=== PATIENT | male | born 1950 | race Caucasian/White ===

== ENCOUNTER 2016-10-16 02:46 | Inpatient (IN) | payer OTHER, MEDICARE ==
[~2016-10-16] VITALS: Ht 182.9 cm; Wt 115.7 kg
[~2016-10-16 02:46] MED LIST: ADVAIR DISKUS 21 DSK INH; AMLODIPINE BESY10 M1 PO; AUGMENTIN 875875 MG PO; BYSTOLIC10 MG PO; BYSTOLIC20 M1 PO; CHLORDIAZEPOXID25 M3 PO; IRON; PROAIR HFA0.09 MG/Ac INH; PROBIOTIC & ACI1 CAP PO
--- NOTE | 2016-10-16 12:06 | Operative Report ---
Operative/Inv Procedure Report Surgery Date: 10/16/16 Name of Procedure: Left total knee arthroplasty Pre-Operative Diagnosis: Primary osteoarthritis left knee Post-Operative Diagnosis: Same Estimated Blood Loss: less than 50ml Surgeon/Freedom Of Information Officer: LORY LEE,JOSE Christian Physician life science research assistant Robert Gu Anesthesia: block (spinal) IV Fluids: See anesthesia record Implants: Striker triathlon posterior stabilize knee. Size 5 femur, size 6 tibia, 13 mm polyethylene insert, 29 asymmetric patella Drains: None Specimens: Bone to pathology Tourniquet: 54 minutes Complications: None Condition: Stable Operative Indication: Patient is a 66-year-old male with severe osteoarthritis of the left knee. He failed conservative treatment and wished to proceed with total knee arthroplasty. Risk and benefits of the procedure discussed the patient detail in the office and he wished to proceed. Skilled set of hands was necessary provided by physician life science research assistant Robert Gu weighted with retraction positioning and component assembly throughout the case. Operative/Procedure Note Note: Once informed consent was obtained the correct limb was identified the patient brought to operating room placed on table supine position after administration of spinal anesthesia. A thigh tourniquet was placed on left lower extremity and a Parnell catheter was placed. Left lower from his prepped and draped usual sterile fashion. To begin the procedure standard midline incision was made and sharp dissection carried down to skin and subcutaneous tissue and fat. A medial parapatellar arthrotomy was made and the patella was everted. The fat pads removed the patellar tendon. Ossified from within the patella and patellar thickness was measured to be 26 mm. Plan resection of 10 mm was performed on the patella using the jig. The patella was then sized to be an asymmetric 29 patella. The jig was loaded and the lug holes were drilled. The patella was then retracted laterally and knee was placed into flexion. Step drill was used to enter the intramedullary canal of the femur. The distal femoral cutting guide was placed in the intramedullary canal with a plan resection of 10 mm of bone and 6 valgus cut. This was done without complication. The femur was then sized with a femoral sizing guide. A size 5 femur was chosen. A size 5 4-in-1 cutting block was placed in the distal femur and the anterior, posterior, chamfer cuts were made. Bone was passed off as specimen. Next the box cut guide was placed for the posterior stabilized knee. The box cut was made with a chisel an oscillating saw. At this point we then used curved osteotome to remove any posterior osteophytes off the femoral condyles. The menisci were resected sharply with a #10 blade. Any cruciate ligaments were removed and the tibia was translated anteriorly with a pickle fork retractor. Intramedullary canal of the tibia was entered with a step drill and the tibial cutting guide was placed. A plan resection of 4 mm off the medial side of the knee was done without complication and bone was passed off as specimen. The tibia was then sized to be a size 6 tibia. The trial reduction was done with a 6 tibial tray a 5 femoral component and an 11 mm polyethylene insert. With the 11 mm meter polyethylene insert the knee was loose both varus and valgus stress guerra. We might up to a 13 mm polyethylene insert trial. This was placed and the knee was taken through a range of motion. The patella tracked very nicely and the component for the tibia was marked for rotation. The components removed and the tibial component tray was pinned in place and the keel cut was made. Once this was done ONCE removed and the knee was pulse lavaged. The cement was mixed on the back table and while the cement was being prepared X Alba was used to inject for local anesthesia. The components were then cemented in place with the tibia followed by the femur followed by the patellar button. All excess cement was removed with curettes. A 13 mm trial insert was placed and knee was placed in extension while the cement hardened. Knee was taken through a range of motion and found to be stable at 0 and 70 to varus valgus stress with 120 of flexion and full extension. The trial insert was removed and a 13 mm polyethylene insert was opened and locked into the tibial tray. Final pulse lavage was performed and the tourniquet was released. Any bleeding was stopped with electro cautery. The arthrotomy was then closed #1 Vicryl interrupted sutures. The subcutaneous tissues were closed with #1 Vicryl and 2-0 Vicryl interrupted sutures and the skin was closed nicolasa. A sterile dressing was applied and the patient was awakened taken recovery in stable condition.
--- NOTE | 2016-10-16 14:27 | PN- Orthopedic ---
Subjective Subjective: Post-op Check Pt. Doing well and pain well controlled. Currently denies any CP, SOB, N, V, numbness or tingling. Tolerating clears. Coleman in place and draining clear yellow urine. Has yet to ambulate with PT. Objective Vital Signs and I&Os HR: 60 RR: 11 O2: 92% on RA BP: 150/79 Physical Exam: Gen: NAD, sitting up in bed CV: Borderline allie Pulm: CTA Abd: Obese, soft, +BS throughout Ext: Left LE: JINNY and On-Q in place. No evidence of active bleeding, thigh compartments soft. wiggling toes. 2+ DP pulse. no calf tenderness b/l. Assessment/Plan Assessment/Plan 66 M with a PMH of COPD and HTN is POD#0 s/p LEFT total knee Plan: - Continue home meds including BP (B-jaye) - PT -> WBAT - d/c coleman in am - Vanco x1 post-op - Labs in AM - Eliquis 2.5 mg BID - Bowel regimen - Dressing change POD# 2 Core Measures/Miscellaneous Venous Thromboembolism VTE Risk Factors: Age > 40 VTE Contraindications: No Contraindications VTE Diagnosis: No Beta Jaye Is Beta Jaye a Home Med? Yes Antibiotics Is Patient on Antibiotics? Yes
--- NOTE | 2016-10-16 14:32 | Patient Discharge Instructions ---
Discharge Instructions General Discharge Information You were seen/treated for: Left knee osteoarthrits You had these procedures: Left total knee replacement Watch for these problems: Temps >101.5, redness, drainage, foul odor, new onset of numbness or tingling, inability to walk. Call Surgeon to remove: Herrera No bath, but you may shower: Yes Other wound care: Keep clean and dry. Daily dressing changes. Special Instructions: Eliquis 2.5mg BID Total knee precautions Please have basic electrolyte panel blood drawn with prescription provided. f/u with PCP no later than 10/25/16 Diet Continue normal diet: Yes Activity Full Activity/No Limits: No Activity Self Limited: Yes Acute Coronary Syndrome Inclusion Criteria At DC or during hospital stay patient has or had the following: ACS DIAGNOSIS No Discharge Core Measures Meds if any: Prescribed or Continued at Discharge Meds if any: NOT Prescribed or Continued at Discharge Congestive Heart Failure Inclusion Criteria At DC or during hospital stay patient has or had the following: CHF DIAGNOSIS No Discharge Core Measures Meds if any: Prescribed or Continued at Discharge Meds if any: NOT Prescribed or Continued at Discharge Cerebrovascular accident Inclusion Criteria At DC or during hospital stay patient has or had the following: CVA/TIA Diagnosis No Discharge Core Measures Meds if any: Prescribed or Continued at Discharge Meds if any: NOT Prescribed or Continued at Discharge Venous thromboembolism Inclusion Criteria VTE Diagnosis No VTE Type NONE VTE Confirmed by (Test) NONE Discharge Core Measures - Per Current guidelines, there needs to be overlap - treatment for the first 5 days of Warfarin therapy. - If discharged on Warfarin prior to 5 days of - overlap therapy, the patient will need to be - assessed for post discharge needs including - *Post discharge parental anticoagulation - *Warfarin and/or parental anticoagulation education - *Follow up date to check INR post discharge At least 5 days overlap therapy as Inpatient No Meds if any: Prescribed or Continued at Discharge Note: Overlap Therapy is Warfarin and Anticoagulant Meds if any: NOT Prescribed or Continued at Discharge
--- NOTE | 2016-10-16 14:34 | Admission Core Measures ---
Admission Meds I reviewed the following Meds: Current Medications Sig/Keshawn Start time Last Medication Dose Stop Time Status Admin Vancomycin HCl 1,000 MG ONCE 10/16 0000 NR Sodium Chloride 250 ML 10/16 5229 (Normal Saline 0.9%) Acute Coronary Syndrome Inclusion Criteria ACS Diagnosis No Inpatient Core Measures LDL Reminder: If No, please order W/I first 24hr of stay Congestive Heart Failure Inclusion Criteria CHF Diagnosis No Cerebrovascular accident Inclusion Criteria CVA/TIA Diagnosis No Inpatient Core Measures Bedside Swallow Eval Reminder: If BSE failed, place ST order Antithrombotic Reminder: Order Antithrombotic Medication by end of day 2 Antithrombotic Reminder: Document Reason Antithrombotic Not ordered by end of day 2 AFIB/Flutter Reminder: If Present, add to problem list AFIB/Flutter Reminder: Order Anticoag Medication for pts with AFIB/Flutter Atherosclerosis Reminder: If Present, add to problem list LDL Reminder: If No, please order W/I first 24hr of stay PT Order Reminder: If No, please order Venous thromboembolism Inpatient Core Measures VTE Risk Factors: Age > 40, [facility]esity [facility] prophylaxis d/t No contraindications No VTE Pharm Prophylaxis d/t No contraindications Inclusion Criteria - Per Current guidelines, there needs to be overlap - treatment for the first 5 days of Warfarin therapy. - Parenteral Anticoagulation (IV or SC) needs to be - given along with Warfarin therapy. VTE Diagnosis No VTE Type NONE VTE Confirmed by (Test) NONE Problem List As ranked by this Provider includes Assessment & Plan 1. S/P total knee arthroplasty HOME MEDS Home Med List Amlodipine Besylate 10 MG TABLET 1 TAB PO DAILY BP (Reported) Chlordiazepoxide HCl 25 MG CAPSULE 2 CAP PO QPM UNKNOWN (Reported) Nebivolol HCl (Bystolic) 20 MG TABLET 1 TAB PO DAILY HEART (Reported)
[2016-10-16 15:34] VITALS: BP 134/82
--- NOTE | 2016-10-16 15:35 | NUR ---
PT CAME UP FROM PACU. PATIENT ALERT AND ORIENTED X3. VSS AT THIS TIME. ONQ PUMP VISIBLE AT THE ADDUCTOR CANAL GOING TO 8ML/HR. SITE INTACT. SURGICAL SITE TO LEFT HIP INTACT. +CMS. , DARIELAR AT THE BEDSIDE. PATIENT ORIENTED TO STAFF, CALL AMEZCUA. PT EDUCATED ABOUT BAUGH CATHETER AND ITS PURPOSE. PT ABLE TO VERBALIZE EDUCATION BACK TO THIS RN. PATIENT CURRENTLY DENIES PAIN AND VERBALIZES COMFORT LEVEL. PROFESSIONAL PROGRAMMER ANALYST INFO AND BADGE GIVE TO . PATIENT NOR FAMILY MEMEBER OFFER NO COMPLAINTS AT THIS TIME. REPORT GIVEN TO UNCOMING RNROGELIO
[2016-10-16 16:56] VITALS: BP 118/70
[2016-10-16 19:30] VITALS: BP 122/80
--- NOTE | 2016-10-16 20:46 | NUR ---
PT ON Q PUMP SET TO 8ML/HR. PAPER CHART SHOWS ON Q TO BE SET AT 12 ML/HR. CALLED ANESTHESIA FOR CLARIFICATION. WILL INCREASE ON Q TO 12 ML/HR PER ANESTHESIOLOGIST REQUEST.
[2016-10-16 21:11] VITALS: BP 144/84
[2016-10-16 23:04] VITALS: BP 132/84
[2016-10-17] VITALS (8 sets, daily range): BP systolic 120–156; BP diastolic 62–82
[2016-10-17 08:03] LABS: ABSOLUTE BASOPHIL COUNT 0 /CUMM (0.0-0.2); ABSOLUTE EOSINOPHIL COUNT 0.4 /CUMM (0.0-0.7); ABSOLUTE GRANULOCYTE CT 10.2 /CUMM (1.4-6.5); ABSOLUTE LYMPH COUNT 0.8 /CUMM (1.2-3.4); ABSOLUTE MONOCYTE COUNT 1.1 /CUMM (0.10-0.60); BASOPHIL % 0.2 % (0.0-2.0); EOSINOPHIL % 2.9 % (0-5); GRANULOCYTE % 81.4 % (42.2-75.2); HEMATOCRIT 37.7 % (42-52); MEAN CORPUSCULAR HGB 31.4 PG (27.0-31.0); MEAN CORPUSCULAR HGB CONC 34.1 G/DL (33.0-37.0); MEAN CORPUSCULAR VOLUME 91.9 FL (80.0-94.0); PLATELET COUNT 266 /CUMM (130-400); RBC DISTRIBUTION WIDTH 12.5 % (11.5-14.5); WHITE BLOOD CELL COUNT 12.5 /CUMM (4.8-10.8)
--- NOTE | 2016-10-17 08:25 | PN- Orthopedic ---
Subjective Subjective: Patient with expected left lateral knee pain. He denies any other complaints, no calf pain, no chest pain or shortness of breath, no fever or flulike illness no nausea no vomiting. Objective Vital Signs and I&Os Vital Signs Date Time Temp Pulse Resp B/P B/P Pulse O2 O2 Flow FiO2 Mean Ox Delivery Rate 10/17 0755 99.2 86 20 140/80 90 Room Air 10/17 0559 100.0 87 20 156/76 90 Room Air 10/17 0330 99.7 82 20 140/64 92 Room Air 10/17 0115 99.3 85 20 150/82 93 Room Air 10/16 2304 98.8 78 18 132/84 92 Nasal Cannula 10/16 2111 97.5 75 18 144/84 92 Room Air 10/16 1930 97.6 73 18 122/80 92 Room Air 10/16 1656 97.4 63 18 118/70 92 Nasal Cannula 10/16 1534 98.0 74 18 134/82 94 Nasal 2.0L Cannula 10/16 1501 94 Nasal 2.0L Cannula Intake & Output 10/17 1600 10/17 0800 10/17 0000 10/16 1600 10/16 0800 10/16 0000 Intake Total 530 Output Total 900 1325 500 Balance -900 -795 -500 Intake, IV 250 Intake, Oral 280 Output, Urine 900 1325 500 Patient 255 lb Weight Physical Exam: Well-developed well-nourished no apparent distress. HEENT: Atraumatic, extraocular motion intact Neck: Supple, no lymphadenopathy Respiratory: No respiratory distress Extremities: No edema LEFT lower extremity dressing in place, Range of motion is 0-45. Compression wrap in place. ALPS in place Neurovascularly intact distally Bilateral calves are supple, nontender. Neuro: Alert and oriented x3 Psych: Mood affect normal, normal memory normal judgment. Skin: Warm and dry, no rash on exposed skin Results Last 48 Hours of Labs: Laboratory Tests 10/17 629 Chemistry Sodium (137 - 145 mmol/L) 128 L Potassium (3.5 - 5.1 mmol/L) 4.0 Chloride (98 - 107 mmol/L) 88 L Carbon Dioxide (22 - 30 mmol/L) 31 H Anion Gap (5 - 16) 8 BUN (9 - 20 mg/dL) 15 Creatinine (0.7 - 1.2 mg/dL) 0.7 Estimated GFR (>60 ml/min) > 60 BUN/Creatinine Ratio (7 - 25 %) 21.4 Hematology CBC w Diff Pending WBC Pending RBC Pending Hgb Pending Hct Pending MCV Pending MCH Pending RDW Pending Plt Count Pending MPV Pending PUBS MCHC Pending Assessment/Plan Assessment/Plan Postoperative day #1 status post left total knee arthroplasty Hyponatremia: DC IV fluids, recheck in a.m., asymptomatic Dressing change tomorrow Perioperative antibiotics completed Eliquis for DVT prophylaxis Pain medication as needed Discontinue On-Q tomorrow DC Parnell Physical therapy, weightbearing as tolerated, work on range of motion Follow CBC this morning Core Measures/Miscellaneous Venous Thromboembolism VTE Risk Factors: Age > 40 VTE Contraindications: No Contraindications VTE Diagnosis: No VTE Type: NONE VTE Confirmed by (Test): NONE Beta Jaye Is Beta Jaye a Home Med? Yes Antibiotics Is Patient on Antibiotics? Yes
--- NOTE | 2016-10-17 10:48 | NUR ---
ON Q PUMP RATE INCREASED TO 14ML/HR PER ANETHESIA ORDERS.
[2016-10-18 07:03] VITALS: BP 170/78
--- NOTE | 2016-10-18 07:15 | PN- Orthopedic ---
See Addendum Surgical Brief Attending Note Brief Attending Note: Patient seen this morning postop day #2 status post left total knee arthroplasty. Patient's resting comfortably in bed. No major complaints. He reports the pain is well-controlled other than when he first gets up but he says that "is to be expected". On physical exam the patient's left lower extremity is neurovascular intact. The dressing is in place. He is moving his toes. There is no significant calf tenderness. Assessment status post total knee arthroplasty patient is doing well. Plan the patient will continue with physical therapy weightbearing as tolerated range of motion to the left knee. Dressing will be changed today by the physician assistant case manager. Follow-up on labs and continue anticoagulation.
[2016-10-18 07:53] VITALS: BP 138/70
--- NOTE | 2016-10-18 08:14 | NUR ---
PT NOTED TO HAVE SHORTNESS OF BREATH WITH SPEECH DURING ASSESSMENT. LUNGS AUSCULTATED, CLEAR BUT SLIGHTLY DIMINISHED AT THE BASES. NOTED TO HAVE SLIGHT NON-PRODUCTIVE COUGH. WHEN PT QUESTIONED ABOUT FEELING SHORT OF BREATH STATES "I KNOW A LOT OF PEOPLE AND EVERYONE WHO COMES TO [facility] GETS TOLD THEY HAVE A BREATHING PROBLEM. I'M NOT DOING ANY BREATHING EXERCISES". IST OBTAINED AND EDUCATION PROVIDED. PT REMAINS RESISTANT. PT EDUCATED THAT THE IST DOES NOT MEAN THAT HE HAS A BREATHING PROBLEM BUT IS GIVEN PART OF THE POST-OPERATIVE CARE. SATURATIONS RANING FROM 89-94% ON RA. WILL CONTINUE TO RE-INFORCE IST EDUCATION.
[2016-10-18 08:25] LABS: ABSOLUTE BASOPHIL COUNT 0 /CUMM (0.0-0.2); ABSOLUTE LYMPH COUNT 1.4 /CUMM (1.2-3.4); ABSOLUTE MONOCYTE COUNT 1.3 /CUMM (0.10-0.60); BASOPHIL % 0.3 % (0.0-2.0); EOSINOPHIL % 7.1 % (0-5); GRANULOCYTE % 73.3 % (42.2-75.2); MEAN CORPUSCULAR HGB 31.4 PG (27.0-31.0); MEAN CORPUSCULAR HGB CONC 33.9 G/DL (33.0-37.0); MEAN CORPUSCULAR VOLUME 92.7 FL (80.0-94.0); MEAN PLATELET VOLUME 7.1 FL (7.4-10.4); PLATELET COUNT 232 /CUMM (130-400); RBC DISTRIBUTION WIDTH 12.7 % (11.5-14.5); RED BLOOD CELL CT 3.56 /CUMM (4.70-6.10); WHITE BLOOD CELL COUNT 13.7 /CUMM (4.8-10.8)
--- NOTE | 2016-10-18 09:49 | Cons- Medical ---
MIGUEL CABRERA 10/18/16 0948: General Information and HPI Consulting Request Date of Consult: 10/18/16 Requested By: LORY LEE,JOSE Christian Reason for Consult: Worsening of creatinine level Source of Information: patient, old records Exam Limitations: no limitations History of Present Illness: This is a 66-year-old gentleman with history of hypertension who underwent left total knee arthroplasty on 10/16/2016. The patient is on home medications of Amlodipine 10 mg daily, Nevibolol 20 mg daily and Chlorthalidone 25 mg daily which were continued during his hospital stay. He was noted to have elevated creatinine of 1.3 today (was 0.7 on 2016) therefore medical team was consulted. Per patient, his primary care provider manages his blood pressure is usually well controlled. He is compliant with his home medications and has not experienced any side effects. At the time of our interview, he mentions that he feels dehydrated even though has been drinking water after his surgery. He denies any headache, nausea, vomiting, dizziness, lightheadedness, chest pain , shortness of breath, abdominal pain, change in bowel habits, urinary symptoms. Allergies/Medications Allergies: Coded Allergies: No Known Allergies (09/26/16) Home Med List: Amlodipine Besylate 10 MG TABLET 1 TAB PO DAILY BP (Reported) Apixaban (Eliquis) 2.5 MG TABLET 1 TAB PO BID BLOOD THINNER Docusate Sodium 100 MG CAPSULE 1 TAB PO BID CONSTIPATION Hydromorphone HCl 2 MG TABLET 1-2 TAB PO Q3P PRN PAIN SCALE 4-6 (MODERATE) Nebivolol HCl (Bystolic) 20 MG TABLET 1 TAB PO DAILY HEART (Reported) Polyethylene Glycol 3350 (Miralax) 17 GRAM/DOSE POWDER 1 PACKET PO DAILY NEEDED PRN NO BM IN TWO DAYS Review of Systems Review of Systems Constitutional: Reports: no symptoms. Past History Medical History Blood Transfusion Hx: No Neurological: NONE EENT: NONE Cardiovascular: NONE Respiratory: COPD Gastrointestinal: NONE Hepatic: NONE Renal: NONE Musculoskeletal: osteoarthritis Psychiatric: NONE Endocrine: NONE Blood Disorders: NONE Cancer(s): NONE STUDENT TEACHING COORDINATOR/Reproductive: NONE Surgical History Surgical History: hip replacement Family History Relations & Conditions If Any: FATHER FH: chronic renal disease FH: heart attack, Onset: 50-60. Psychosocial History Where Do You Live? Home Services at Home: None Smoking Status: Former Smoker Exam & Diagnostic Data Last 24 Hrs of Vital Signs/I&O Vital Signs Date Time Temp Pulse Resp B/P B/P Pulse O2 O2 Flow FiO2 Mean Ox Delivery Rate 10/18 0800 Room Air 10/18 0757 138/70 10/18 0756 138/70 10/18 0753 138/70 10/18 0703 98.9 79 20 170/78 94 Room Air 10/18 0000 94 Room Air 10/17 2235 98.4 74 20 130/66 94 Room Air 10/17 1420 98.4 80 20 120/62 92 Room Air 10/17 1419 98.4 81 18 120/62 92 Room Air Intake & Output 10/18 1600 10/18 0800 10/18 0000 Intake Total 240 480 Output Total 400 200 Balance -160 280 Intake, IV 0 Intake, Oral 240 480 Number 0 Bowel Movements Output, Urine 400 200 Physical Exam General Appearance: well developed/nourished, no apparent distress, alert, awake , comfortable Head: atraumatic, normal appearance Eyes: Bilateral: normal appearance, PERRL, EOMI. Ears, Nose, Throat: normal pharynx, normal ENT inspection, dry mucous membranes Neck: normal inspection, supple, full range of motion, no JVD, no carotid bruit Respiratory: normal breath sounds, chest non-tender, no respiratory distress, lungs clear Cardiovascular: regular rate/rhythm, no murmur Gastrointestinal: normal bowel sounds, soft, non-tender, no organomegaly Back: normal inspection Extremities: no edema, left lower extremity dressing in place, normal pulses Neurologic/Psych: no motor/sensory deficits, awake, alert Last 24 Hrs of Labs/Prince: Laboratory Tests 10/18/16 0647: Anion Gap 9, Estimated GFR 55 L, BUN/Creatinine Ratio 19.2, CBC w Diff NO MAN DIFF REQ, RBC 3.56 L, MCV 92.7, MCH 31.4 H, RDW 12.7, MPV 7.1 L, Gran % 73.3, Lymphocytes % 9.9 L, Monocytes % 9.4 H, Eosinophils % 7.1 H, Basophils % 0.3, Absolute Granulocytes 10.0 H, Absolute Lymphocytes 1.4, Absolute Monocytes 1.3 H, Absolute Eosinophils 1.0, Absolute Basophils 0, PUBS MCHC 33.9 Assessment/Plan Assessment/Plan This is a 66-year-old gentleman with history of hypertension on home medications of Amlodipine 10 mg daily, Nevibolol 20 mg daily and Chlorthalidone 25 mg daily who underwent left total knee arthroplasty on 10/16/2016 was noted to have worsening of creatinine level from 0.7-1.3 today. Echocardiogram 01/25/2015: Normal ejection fraction of 55%, impaired LV relaxation, mild septal hypertrophy, mild RV enlargement, trace MR, trace TR Dipyridamole stress test on 09/26/2016:No perfusion abnormalities are noted. Mild left ventricular chamber dilatation and diffuse hypokinesis are noted. The left ventricular ejection fraction is minimally depressed. Problem list #DEMETRI #Leukocytosis: Likely reactive #Hyponatremia: asymptomatic #Hypertension: stable Plan * Would discontinue chlorthalidone at this point, okay to continue amlodipine and Nevibolol * NL 1L Bolus x1 than IV normal saline at 75 mL per hour * Avoid dehydration * Monitor creatinine levels closely; recheck labs tomorrow * Monitor I's and O's * Monitor blood pressure * Outpatient follow-up with PCP * Rest of management as per primary team Consult Acknowledgment - Thank you for your consult request. DENDEAN 10/18/16 1058: Assessment/Plan Consult Acknowledgment - Thank you for your consult request. Attending MD Review Statement Attending Statement Attending MD Statement: examined this patient, discuss w/resident/PA/SILVER RECOVERY OPERATOR, agreed w/resident/PA/SILVER RECOVERY OPERATOR, discussed with family, reviewed EMR data (avail), discussed with nursing, discussed with case mgmt, reviewed images, amended to note Attending Assessment/Plan: hold diureitcs for now, check bmp in am, gentle hydration, leukocytosis reactive afebrile. will follow.
--- NOTE | 2016-10-18 13:29 | RADIOLOGY REPORT ---
EXAMINATION: XR KNEE, LEFT CLINICAL INFORMATION: Status post total left knee replacement. COMPARISON: Left knee radiographs 07/29/2016 TECHNIQUE: Four views of the left knee. FINDINGS: Patient is status post total left knee replacement. Hardware is intact and in normal anatomic alignment. Expected surgical changes are seen including subcutaneous emphysema, soft tissue swelling and overlying skin nicolasa. No acute fracture identified. IMPRESSION: Status post total left knee replacement. Hardware is intact and in normal anatomic alignment.
[2016-10-18 14:03] VITALS: BP 130/60
[2016-10-18 23:05] VITALS: BP 130/62
[2016-10-19 06:39] VITALS: BP 122/68
--- NOTE | 2016-10-19 07:46 | PN- Orthopedic ---
See Addendum Subjective Subjective: pod#3 s/p left tka no major issues overnight denies cp, sob, no n+v tolerating diet appreciate medicine input for collins Objective Vital Signs and I&Os Vital Signs Date Time Temp Pulse Resp B/P B/P Pulse O2 O2 Flow FiO2 Mean Ox Delivery Rate 10/19 0639 98.4 81 18 122/68 91 Room Air 10/19 0000 Room Air 10/18 2305 99.6 80 20 130/62 91 Room Air 10/18 1403 98.2 78 20 130/60 92 Room Air 10/18 0800 Room Air 10/18 0757 138/70 10/18 0756 138/70 10/18 0753 138/70 Intake & Output 10/19 0800 10/19 0000 10/18 1600 10/18 0800 10/18 0000 10/17 1600 Intake Total 970 396 3001 240 480 480 Output Total 850 500 250 400 200 225 Balance -450 -100 1750 -160 280 255 Intake, IV 887 891 7255 0 Intake, Oral 092 927 7698 240 480 480 Number 0 0 Bowel Movements Output, Urine 850 500 250 400 200 225 Physical Exam: cv: rrr lungs: clear abd: soft, +bs ext: no calf tenderness bilat wound c/d/i distal cms intact Assessment/Plan Assessment/Plan from an ortho standpoint stable for home d/c will await f/u bun/cr plan medical clearance for d/c cont current plan likely home later today Core Measures/Miscellaneous Venous Thromboembolism VTE Risk Factors: Age > 40 VTE Contraindications: No Contraindications VTE Diagnosis: No VTE Type: NONE VTE Confirmed by (Test): NONE Beta Jaye Is Beta Jaye a Home Med? Yes Antibiotics Is Patient on Antibiotics? Yes
[2016-10-19 08:34] LABS: ABSOLUTE BASOPHIL COUNT 0.1 /CUMM (0.0-0.2); ABSOLUTE EOSINOPHIL COUNT 0.4 /CUMM (0.0-0.7); ABSOLUTE GRANULOCYTE CT 10.5 /CUMM (1.4-6.5); ABSOLUTE LYMPH COUNT 1.2 /CUMM (1.2-3.4); ABSOLUTE MONOCYTE COUNT 1.2 /CUMM (0.10-0.60); BASOPHIL % 0.7 % (0.0-2.0); EOSINOPHIL % 3.1 % (0-5); GRANULOCYTE % 78.6 % (42.2-75.2); HEMATOCRIT 30.5 % (42-52); MEAN CORPUSCULAR HGB 31.3 PG (27.0-31.0); MEAN CORPUSCULAR HGB CONC 33.8 G/DL (33.0-37.0); MEAN CORPUSCULAR VOLUME 92.6 FL (80.0-94.0); MEAN PLATELET VOLUME 7.2 FL (7.4-10.4); PLATELET COUNT 226 /CUMM (130-400); RBC DISTRIBUTION WIDTH 12.6 % (11.5-14.5); RED BLOOD CELL CT 3.29 /CUMM (4.70-6.10); WHITE BLOOD CELL COUNT 13.4 /CUMM (4.8-10.8)
--- NOTE | 2016-10-19 09:04 | PN- Att Addend ---
Attending Addendum Attending Brief Note Patient seen and examined. He has no major complaints. He is wondering about his discharge . On exam blood pressure is 122/68, pulse is 81, breathing at 14- 16 with a sat of 90-92% on 2 L and afebrile. Appears euvolemic on exam, lungs are clear to auscultation bilaterally, heart is S1-S2 regular, abdomen is soft and he status post left total knee arthroplasty. Labs reviewed his sodium is 127 and is essentially stable from yesterday sodium of 127 and the day before that to 128. His BUN and creatinine are 18 and 0.9 but have markedly improved from 25 and 1.3 today before. His CBC is pending. 66-year-old male past medical history of hypertension, COPD and most recent myocardial perfusion study shows mildly depressed LV who was admitted for a left total knee arthroplasty and postoperatively medicine was consult for hyponatremia and DEMETRI. I think the DEMETRI has resolved nicely and I think the hyponatremia, euvolemic in nature reflects the effects of the chlorthalidone 25 mg he most recently got a dose yesterday morning and now it stopped. Given that his pressure is completely stable in the 120s to 70s range I would continue the Norvasc 10 and the Nebivilol 20 on discharge and stop the chlorthalidone. I would also clearly give him a slip to check his sodium and BUN and creatinine no later than October 24 and the results should be forwarded to his PCP in [place]. He needs to closely follow-up his sodium and blood pressure as an outpatient.
[2016-10-19 10:05] VITALS: BP 122/68
[2016-10-19] MEDS ORDERED: DOCUSATE SODIU100 M3 PO (11:29)
[2016-10-19] MEDS ORDERED: MIRALAX119 GM PO (11:29)
[2016-10-19] MEDS ORDERED: HYDROMORPHONE HC2 M1 PO (11:29)
[2016-10-19] MEDS ORDERED: ELIQUIS2.5 M1 PO (11:29)
--- NOTE | 2016-10-19 11:39 | Discharge Summary ---
Visit Information Visit Dates Admission Date: 10/16/16 Discharge Date: 10/19/16 Hospital Course Course Attending Physician: LORY LEE,JOSE Christian Primary Care Physician: LUCY ARROYO Hospital Course: Mr. An is a 66-year-old male who was admitted to [facility] after failed attempts of conservative treatment for primary left knee degenerative arthritis. He was taken to the operating room on 10/16/2016 and underwent left total knee arthroplasty. He tolerated procedure well and was transferred to the floor. He was out of bed with physical therapy postop day 1 to and 3 with minimal assistance and cleared by physical therapy for discharge to home. Also during's hospital stay was noted that he had elevated BUN/creatinine for which medical consultation was obtained. Results of this consultation were to remove nephrotoxic medications, gentle hydration, and follow-up lab work. The follow-up lab work after this treatment demonstrated a return to normal of his creatinine. However hyponatremia remained. After discussion with the medical team prior to discharge it was determined that he may be discharged but a repeat basic electrolyte panel will be done next Friday and he will follow up with his primary medical doctor no later than 10/25/2016 to determine if cessation of his nephrotoxic medication should be continued or reinstituted. His hospital stays otherwise unremarkable. Allergies: Coded Allergies: No Known Allergies (09/26/16) Disposition Summary Disposition Principal Diagnosis: Primary left knee degenerative arthritis Additional Diagnosis: None Discharge Disposition: home health services Discharge Instructions General Discharge Information Code Status: Full Code Patient's Diet: Regular diet Patient's Activity: No strenuous activities, may be weightbearing as tolerated left lower extremity, dry sterile dressing to left knee daily, Eliquis twice a day for DVT prophylaxis Follow-Up Instructions/Appts: Follow-up with Dr. Reyna in 2 weeks for staple removal to left knee, call for temperature greater than 101.5, increased wound drainage or redness, increased pain with ambulation Medications at Discharge Discharge Medications: Stop taking the following medications: Chlordiazepoxide HCl (Chlordiazepoxide HCl) 25 MG CAPSULE ORAL Every night Continue taking these medications: Nebivolol HCl (Bystolic) 20 MG TABLET 1 Tablet ORAL DAILY Amlodipine Besylate (Amlodipine Besylate) 10 MG TABLET 1 Tablet ORAL DAILY Start taking the following new medications: Apixaban (Eliquis) 2.5 MG TABLET 1 Tablet ORAL TWICE DAILY Qty = 60 No Refills Hydromorphone HCl (Hydromorphone HCl) 2 MG TABLET 1-2 Tablet ORAL EVERY 3 HOURS NEEDED as needed for PAIN SCALE 4-6 ( MODERATE) Qty = 36 No Refills Docusate Sodium (Docusate Sodium) 100 MG CAPSULE 1 Tablet ORAL TWICE DAILY Qty = 60 No Refills Polyethylene Glycol 3350 (Miralax) 17 GRAM/DOSE POWDER 1 PACKET ORAL DAILY NEEDED as needed for NO BM IN TWO DAYS Qty = 10 No Refills Copies To: LORY LEE,JOSE Christian
== END 2016-10-19 13:05 | disposition home health service (06) | DRG 470 ==
LOC: 2NA 02:46 → SDA 02:46 → ENRESERV 13:51 → ENTRNSPT 14:22 → 2NA 14:49 → CMPTRNSPT 14:58 → ENPENDDIS 10-19 11:39 → 2NA 10-19 13:05
PROVIDERS: Physician Assistant; Physician Assistant Surgical; ADMIT Orthopaedic Surgery Foot and Ankle Surgery
PROC: 0SRD0J9 Replacement of Left Knee Joint with Synthetic Substitute, Cemented, Open Approach (ICD-10-PCS; principal; 2016-10-16)
DX: M17.12 Unilateral primary osteoarthritis, left knee (principal); N17.9 Acute kidney failure, unspecified; E87.1 Hypo-osmolality and hyponatremia; E66.9 Obesity, unspecified; Z68.34 Body mass index [BMI] 34.0-34.9, adult; J44.9 Chronic obstructive pulmonary disease, unspecified; I10 Essential (primary) hypertension; D72.829 Elevated white blood cell count, unspecified
CPT/HCPCS: 2NAP; 36415; 73560-LT; 82436; 87086; 97110-GO; 97116-GO; 97161-GP; 97530-GO; C1713; C9290; J0131; J2405; J2795; J3370; J7040